=== PATIENT | female | born 1985 | race American Indian/Alaskan Native ===

== ENCOUNTER 2018-09-18 08:50 | Emergency (ER) | payer OTHER ==
[2018-09-18 09:04] VITALS: BP 146/95
[2018-09-18 10:57] LABS: Basophils # (Auto) 0.1 K/mm3 (0.0-0.1); Basophils % (Auto) 0.6 % (0.0-1.8); Eosinophils # (Auto) 0.1 K/mm3 (0.0-0.4); Hematocrit 38.6 % (30.3-42.9); Hemoglobin 12.8 gm/dl (10.1-14.3); Lymphocytes # (Auto) 1.9 K/mm3 (1.2-5.4); Lymphocytes % (Auto) 21.7 % (13.4-35.0); Mean Corpuscular HGB Conc 33 % (30-34); Mean Corpuscular Volume 82 fl (79-97); Monocytes # (Auto) 0.4 K/mm3 (0.0-0.8); Monocytes % (Auto) 4.9 % (0.0-7.3); Platelet Count 277 K/mm3 (140-440); Red Blood Count 4.69 M/mm3 (3.65-5.03); Red Cell Distribution Width 15.3 % (13.2-15.2)
[2018-09-18 10:59] LABS: Bilirubin,Urine NEG (Negative); Blood,Urine NEG (Negative); Color,Urine Yellow (Yellow); Protein,Urine <15 mg/dL mg/dL (Negative); Urobilinogen,Urine < 2.0 mg/dL (<2.0); WBC,Urine < 1.0 /HPF (0.0-6.0)
[2018-09-18 11:19] LABS: Alanine Aminotransferase 21 units/L (7-56); BUN/Creatinine Ratio 15; Blood Urea Nitrogen 6 mg/dL (7-17); Calcium 8.8 mg/dL (8.4-10.2); Hemolysis Index 4
--- NOTE | 2018-09-18 11:25 | Emergency Department Report ---
ED General Adult HPI - General Chief complaint: Medical Clearance Stated complaint: LFT SIDE NUMB/LFT SIDE PAIN Time Seen by Provider: 09/18/18 10:22 Source: patient Mode of arrival: Ambulatory Limitations: No Limitations - History of Present Illness Initial comments: Pt is a 32 yo female who presents to the ED with c/o left sided facial pain, left sided facial tingling, left sided shoulder pain that began 3 days ago. She states at that time her blood pressure was elevated, and the diastolic was >100. She states she is 9 weeks and she saw her TANK FILLER and was placed on labetalol 100 mg BID. She states she also has N/V. She denies any abdominal pain, CP, SOB, urinary sx, ROBERTSON, or vision changes. She states her next appt with her TANK FILLER is on 09/21. The patient states she also has a hx of PCOS with insulin resistance and previously took metformin but was taken off by her TANK FILLER. Severity scale (0 -10): 7 - Related Data Allergies Allergy/AdvReac Type Severity Reaction Status Date / Time Sulfa (Sulfonamide Allergy Hives Verified 09/18/18 08:55 Antibiotics) ED Review of Systems ROS: Stated complaint: LFT SIDE NUMB/LFT SIDE PAIN Other details as noted in HPI Comment: All other systems reviewed and negative ED Past Medical Hx - Past Medical History Previous Medical History?: Yes Hx Hypertension: Yes Additional medical history: Takes Metformin - Surgical History Past Surgical History?: Yes Additional Surgical History: Colon resection - Social History Smoking Status: Never Smoker Substance Use Type: None ED Physical Exam - General Limitations: No Limitations General appearance: alert, in no apparent distress - Head Head exam: Present: atraumatic, normocephalic - Eye Eye exam: Present: normal appearance, PERRL, EOMI - ENT ENT exam: Present: mucous membranes moist, other (FROM of the mandible) - Respiratory Respiratory exam: Present: normal lung sounds bilaterally. Absent: respiratory distress, wheezes, rales, rhonchi, stridor, chest wall tenderness, accessory muscle use, decreased breath sounds, prolonged expiratory - Cardiovascular Cardiovascular Exam: Present: regular rate, normal rhythm, normal heart sounds. Absent: systolic murmur, diastolic murmur, rubs, gallop - Extremities Exam Extremities exam: Present: other (FROM of the bilateral shoulders) - Neurological Exam Neurological exam: Present: alert, oriented X3, CN II-XII intact, normal gait, other (equal news videographer strength, normal finger to nose, normal heel to lopez, 5/5 strength in the BUE/BLE, sensation intact, no facial asymmetry, facial sensation intact throughout, no neuro deficit on exam). Absent: motor sensory deficit - Psychiatric Psychiatric exam: Present: normal affect, normal mood - Skin Skin exam: Present: warm, dry, intact ED Course Vital Signs 09/18/18 09/18/18 09:03 10:22 Temperature 98.6 F Pulse Rate 87 Respiratory 18 16 Rate Blood Pressure 146/95 [Right] O2 Sat by Pulse 99 Oximetry ED Medical Decision Making - Lab Data Result diagrams: 09/18/18 10:44 09/18/18 10:44 Lab Results 09/18/18 09/18/18 09/18/18 Range/Units 10:15 10:40 10:44 WBC 8.8 (4.5-11.0) K/mm3 RBC 4.69 (3.65-5.03) M/mm3 Hgb 12.8 (10.1-14.3) gm/dl Hct 38.6 (30.3-42.9) % MCV 82 (79-97) fl MCH 27 L (28-32) pg MCHC 33 (30-34) % RDW 15.3 H (13.2-15.2) % Plt Count 277 (140-440) K/mm3 Lymph % (Auto) 21.7 (13.4-35.0) % Rowan % (Auto) 4.9 (0.0-7.3) % Eos % (Auto) 1.0 (0.0-4.3) % Baso % (Auto) 0.6 (0.0-1.8) % Lymph # 1.9 (1.2-5.4) K/mm3 Rowan # 0.4 (0.0-0.8) K/mm3 Eos # 0.1 (0.0-0.4) K/mm3 Baso # 0.1 (0.0-0.1) K/mm3 Seg Neutrophils % 71.8 H (40.0-70.0) % Seg Neutrophils # 6.3 (1.8-7.7) K/mm3 Sodium (137-145) mmol/L Potassium (3.6-5.0) mmol/L Chloride (98-107) mmol/L Carbon Dioxide (22-30) mmol/L Anion Gap mmol/L BUN (7-17) mg/dL Creatinine (0.7-1.2) mg/dL Estimated GFR ml/min BUN/Creatinine Ratio % Glucose (65-100) mg/dL POC Glucose 89 (70-105) Calcium (8.4-10.2) mg/dL Magnesium (1.7-2.3) mg/dL Total Bilirubin (0.1-1.2) mg/dL AST (5-40) units/L ALT (7-56) units/L Alkaline Phosphatase (35-129) units/L Total Protein (6.3-8.2) g/dL Albumin (3.9-5) g/dL Albumin/Globulin Ratio % Urine Color Yellow (Yellow) Urine Turbidity Clear (Clear) Urine pH 8.0 H (5.0-7.0) Ur Specific [place] 1.012 (1.003-1.030) Urine Protein <15 mg/dl (Negative) mg/dL Urine Glucose (UA) Neg (Negative) mg/dL Urine Ketones Neg (Negative) mg/dL Urine Blood Neg (Negative) Urine Nitrite Neg (Negative) Urine Bilirubin Neg (Negative) Urine Urobilinogen < 2.0 (<2.0) mg/dL Ur Leukocyte Esterase Neg (Negative) Urine WBC (Auto) < 1.0 (0.0-6.0) /HPF Urine RBC (Auto) 2.0 (0.0-6.0) /HPF U Epithel Cells (Auto) 6.0 (0-13.0) /HPF 09/18/18 09/18/18 Range/Units 10:44 11:35 WBC (4.5-11.0) K/mm3 RBC (3.65-5.03) M/mm3 Hgb (10.1-14.3) gm/dl Hct (30.3-42.9) % MCV (79-97) fl MCH (28-32) pg MCHC (30-34) % RDW (13.2-15.2) % Plt Count (140-440) K/mm3 Lymph % (Auto) (13.4-35.0) % Rowan % (Auto) (0.0-7.3) % Eos % (Auto) (0.0-4.3) % Baso % (Auto) (0.0-1.8) % Lymph # (1.2-5.4) K/mm3 Rowan # (0.0-0.8) K/mm3 Eos # (0.0-0.4) K/mm3 Baso # (0.0-0.1) K/mm3 Seg Neutrophils % (40.0-70.0) % Seg Neutrophils # (1.8-7.7) K/mm3 Sodium 134 L (137-145) mmol/L Potassium 4.0 (3.6-5.0) mmol/L Chloride 99.5 (98-107) mmol/L Carbon Dioxide 23 (22-30) mmol/L Anion Gap 16 mmol/L BUN 6 L (7-17) mg/dL Creatinine 0.4 L (0.7-1.2) mg/dL Estimated GFR > 60 ml/min BUN/Creatinine Ratio 15 % Glucose 100 (65-100) mg/dL POC Glucose (70-105) Calcium 8.8 (8.4-10.2) mg/dL Magnesium 1.70 (1.7-2.3) mg/dL Total Bilirubin 0.20 (0.1-1.2) mg/dL AST 13 (5-40) units/L ALT 21 (7-56) units/L Alkaline Phosphatase 51 (35-129) units/L Total Protein 7.3 (6.3-8.2) g/dL Albumin 4.0 (3.9-5) g/dL Albumin/Globulin Ratio 1.2 % Urine Color (Yellow) Urine Turbidity (Clear) Urine pH (5.0-7.0) Ur Specific [place] (1.003-1.030) Urine Protein (Negative) mg/dL Urine Glucose (UA) (Negative) mg/dL Urine Ketones (Negative) mg/dL Urine Blood (Negative) Urine Nitrite (Negative) Urine Bilirubin (Negative) Urine Urobilinogen (<2.0) mg/dL Ur Leukocyte Esterase (Negative) Urine WBC (Auto) (0.0-6.0) /HPF Urine RBC (Auto) (0.0-6.0) /HPF U Epithel Cells (Auto) (0-13.0) /HPF - Medical Decision Making Pt is a 32 yo female who presents to the ED with c/o left sided facial pain, left sided facial tingling, left sided shoulder pain that began 3 days ago. She states at that time her blood pressure was elevated, and the diastolic was >100. She states she is 9 weeks and she saw her TANK FILLER and was placed on labetalol 100 mg BID. She states she also has N/V. She denies any abdominal pain, CP, SOB, urinary sx, ROBERTSON, or vision changes. She states her next appt with her TANK FILLER is on 09/21. The patient states she also has a hx of PCOS with insulin resistance and previously took metformin but was taken off by her TANK FILLER. Blood pressure is stable at 146/95. labs are WNL. UA is normal. pt has no neuro deficit on examination. offered pt a CT scan of the head and pt declined. Will have pt follow up with neurology in the next 2-3 days. Will have her follow up with her TANK FILLER in the next 2-3 days and discuss her blood pressure. Will have her follow up with PCP in the next 2-3 days. Discussed with pt to return to the emergency room immediately if begin experiencing ROBERTSON, vision changes, numbness, weakness, or any new or worsening symptoms. case discussed with Dr. Torres who agrees with plan Critical care attestation.: If time is entered above; I have spent that time in minutes in the direct care of this critically ill patient, excluding procedure time. ED Disposition Clinical Impression: Left-sided face pain, Facial paresthesia Left shoulder pain Qualifiers: Chronicity: acute Qualified Code(s): M25.512 - Pain in left shoulder HTN (hypertension) Qualifiers: Hypertension type: essential hypertension Qualified Code(s): I10 - Essential (primary) hypertension Disposition: - TO HOME OR SELFCARE Is pt being admited?: No Does the pt Need Aspirin: No Condition: Stable Instructions: Paresthesia (ED), Hypertension (ED) Additional Instructions: Please follow up with your TANK FILLER in the next 2-3 days. Please follow up with a neurologist in the next 2-3 days. Please discuss with your TANK FILLER about your blood pressure. Continue to take your blood pressure medication and your vitamins. Continue to drink plenty of water. please return to the emergency room immediately if you begin to experience any new or worsening symptoms as discussed. Referrals: WILLIAM TELLO NP [Primary Care Provider] - 2-3 Days [facility] [Provider Group] - 2-3 Days JULEE GONZALES MD [Referring] - 2-3 Days Forms: Work/School Release Form(ED) Time of Disposition: 12:10 Print Language: HEBREW
== END 2018-09-18 12:22 | disposition home or self-care (01) ==
LOC: ED 08:50
DX: I10 Essential (primary) hypertension (principal); M25.512 Pain in left shoulder; R20.2 Paresthesia of skin; Z88.2 Allergy status to sulfonamides
CPT/HCPCS: 36415; 80053; 81001; 82962; 83735; 85025; 99283

== ENCOUNTER 2018-11-25 20:47 | Observation (INO) | payer OTHER ==
--- NOTE | 2018-11-25 21:11 | Event Note ---
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 Further treatment and workup at subsequent clinical providers discretion. Patient/guardian urged not to elope from the ED as their condition may be serious if not clinically assessed and managed. called L&D and they would not take patient due to not being 20 weeks orders: UA, labs, US OB
[2018-11-25 21:54] LABS: Basophils % (Auto) 0.2 % (0.0-1.8); Eosinophils % (Auto) 0.2 % (0.0-4.3); Hematocrit 36.1 % (30.3-42.9); Hemoglobin 12.4 gm/dl (10.1-14.3); Lymphocytes # (Auto) 2.4 K/mm3 (1.2-5.4); Mean Corpuscular HGB Conc 34 % (30-34); Mean Corpuscular Volume 81 fl (79-97); Monocytes # (Auto) 1.2 K/mm3 (0.0-0.8); Monocytes % (Auto) 6.9 % (0.0-7.3); Platelet Count 262 K/mm3 (140-440); Red Blood Count 4.45 M/mm3 (3.65-5.03); Red Cell Distribution Width 13.4 % (13.2-15.2)
[2018-11-25 22:04] LABS: BUN/Creatinine Ratio 15; Blood Urea Nitrogen 6 mg/dL (7-17); Calcium 9.1 mg/dL (8.4-10.2); Hemolysis Index 4
[2018-11-25 23:05] LABS: Bacteria,Urine 1+ /HPF (Negative); Bilirubin,Urine NEG (Negative); Blood,Urine NEG (Negative); Color,Urine Yellow (Yellow); Mucus,Urine FEW /HPF; Protein,Urine <15 mg/dL mg/dL (Negative); Urobilinogen,Urine < 2.0 mg/dL (<2.0)
--- NOTE | 2018-11-25 23:33 | Emergency Department Report ---
ED Abdominal Pain HPI - General Chief Complaint: Abdominal Pain Stated Complaint: 19 WKS PREG/ABD PAIN/FLUID Time Seen by Provider: 11/25/18 23:07 Source: patient Mode of arrival: Ambulatory Limitations: No Limitations - History of Present Illness Initial Comments: Patient is a 32-year-old female that presents emergency room with complaints of abdominal pain and contractions and back pain. Patient also states she is 19 weeks is losing fluid per vagina. Patient denies vaginal bleeding. Patient states her first , patient is a . Patient denies fever chills. Patient denies nausea vomiting. Patient states the pain is 10 out of 10. Patient states the pain is worse with movement and better with rest. MD Complaint: abdominal pain -: Sudden Location: suprapubic Radiation: back Migration to: no migration Severity: severe Severity scale (0 -10): 10 Quality: cramping Consistency: intermittent Improves With: rest Worsens With: movement Associated Symptoms: denies: nausea, vomiting, diarrhea, fever, chills, constipation, dysuria, hematemesis, hematochezia, melena, hematuria - Related Data LMP (females 10-50): Allergies Allergy/AdvReac Type Severity Reaction Status Date / Time Sulfa (Sulfonamide Allergy Hives Verified 11/25/18 21:18 Antibiotics) ED Review of Systems ROS: Stated complaint: 19 WKS PREG/ABD PAIN/FLUID Other details as noted in HPI Constitutional: denies: chills, fever Eyes: denies: eye pain, eye discharge, vision change ENT: denies: ear pain, throat pain Respiratory: denies: cough, shortness of breath, wheezing Cardiovascular: denies: chest pain, palpitations Endocrine: no symptoms reported Gastrointestinal: abdominal pain. denies: nausea, diarrhea Genitourinary: denies: urgency, dysuria, discharge Musculoskeletal: back pain. denies: joint swelling, arthralgia Skin: denies: rash, lesions Neurological: denies: headache, weakness, paresthesias Psychiatric: denies: anxiety, depression Hematological/Lymphatic: denies: easy bleeding, easy bruising ED Past Medical Hx - Past Medical History Previous Medical History?: Yes Hx Hypertension: Yes Hx Diabetes: Yes (gestational diabetes) Additional medical history: Takes Metformin - Surgical History Past Surgical History?: Yes Additional Surgical History: Colon resection - Family History Family history: no significant - Social History Smoking Status: Never Smoker Substance Use Type: None ED Physical Exam - General Limitations: No Limitations General appearance: alert, in no apparent distress - Head Head exam: Present: atraumatic, normocephalic - Eye Eye exam: Present: normal appearance - ENT ENT exam: Present: mucous membranes moist - Neck Neck exam: Present: normal inspection - Respiratory Respiratory exam: Present: normal lung sounds bilaterally. Absent: respiratory distress - Cardiovascular Cardiovascular Exam: Present: regular rate, normal rhythm. Absent: systolic murmur, diastolic murmur, rubs, gallop - GI/Abdominal GI/Abdominal exam: Present: soft, distended, tenderness, normal bowel sounds - Rectal Rectal exam: Present: deferred - Extremities Exam Extremities exam: Present: normal inspection - Back Exam Back exam: Present: normal inspection - Neurological Exam Neurological exam: Present: alert, oriented X3 - Psychiatric Psychiatric exam: Present: normal affect, normal mood - Skin Skin exam: Present: warm, dry, intact, normal color. Absent: rash ED Course Vital Signs 11/25/18 11/26/18 21:08 00:14 Temperature 98.5 F Pulse Rate 121 H 108 H Respiratory 18 20 Rate Blood Pressure 148/102 Blood Pressure 140/91 [Left] O2 Sat by Pulse 99 98 Oximetry - Reevaluation(s) Reevaluation #1: Patient still having contractions and abdominal pain. 11/26/18 01:11 Reevaluation #2: Dr. Winslow wants patient to be sent to the labor and delivery floor. Discussed all results with patient. Patient agrees to plan of care. 11/26/18 01:22 - Consultations Consultation #1: Discussed case with Dr. Winslow and Dr. Bonilla wants fluid readings on the ultrasound by radiologist. Then Dr. Winslow states she will admit the patient to mother baby and treat the patient. 11/26/18 00:38 Dr. Winslow updated with information that the patient is still courtney and the patient fluid is good on ultrasound. Dr. Winslow wants patient to be sent to labor and delivery. 11/26/18 01:11 Dr. 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 11/26/18 02:28 Consultation #2: i discussed case Dr. Card. Dr. Card states he is going to see the patient and is aware that the patient's arterial labor and delivery part of the hospital. 11/26/18 02:29 ED Medical Decision Making - Lab Data Result diagrams: 11/25/18 21:31 11/25/18 21:31 - Radiology Data Radiology results: report reviewed US OB >= 14 weeks Fetus INDICATION / CLINICAL INFORMATION: abd pain, possible premature rupture of membranes. COMPARISON: None available. FINDINGS: Viable single intrauterine gestation is demonstrated in breech presentation. heart rate 177 bpm The placenta is grade 0 and posterior. measurements: BPD 4.2 corresponding to weeks 5 days Head circumference 15.8 corresponding to 18 weeks 5 days Abdominal Circumference corresponding to weeks 1 day Femur length corresponding to 9 weeks Estimated body weight 269 g There is a cervical dilatation, the cervix 3 cm. - Medical Decision Making Patient is a 32-year-old Emergency room with complaints of contractions and abdominal pain and loss of fluid per vagina. Patient is 19 weeks . Patient ultrasound done. Patient's labs are unremarkable except for UTI. Patient admitted to the labor and delivery area for further evaluation and treatment. - Differential Diagnosis contractions. Abdominal pain. . Critical Care Time: Yes Critical care attestation.: If time is entered above; I have spent that time in minutes in the direct care of this critically ill patient, excluding procedure time. Critical Care Time: 35 minutes ED Disposition Clinical Impression: Uterine contractions Qualifiers: Weeks of gestation: 19 weeks Qualified Code(s): Z3A.19 - 19 weeks gestation of Abdominal pain Qualifiers: Abdominal location: lower abdomen, unspecified Qualified Code(s): R10.30 - Lower abdominal pain, unspecified Disposition: 09 OP ADMIT IP TO THIS HOSP Is pt being admited?: Yes Does the pt Need Aspirin: No Condition: Critical Time of Disposition: 01:15
[2018-11-26] MEDS ORDERED: NACL 0.9% 1000 ML 1,000 ML IV ONE (00:38)
[2018-11-26] MEDS ORDERED: NITRATEST PAPER MC ONE (02:00)
[2018-11-26] MEDS ORDERED: AMPICILLIN/NS 2 GM/100 ML 2 GM/100 ML BAG IV ONE (04:08)
[2018-11-26] MEDS ORDERED: ZITHROMAX PO ONE (04:15)
[2018-11-26] MEDS ORDERED: FLAGYL PO ONE (04:16)
--- NOTE | 2018-11-26 04:23 | History and Physical Report ---
History of Present Illness Date of examination: 11/26/18 Date of admission: 11/26/18 03:59 Chief complaint: Contractions since yesterday History of present illness: 32 year old presents to L&D with "contractions." Patient states she started having contractions yesterday with pink spotting when she wiped. She denies vaginal bleeding or spotting now. Still feels contractions and lower back pain. Seen in ED and diagnosed with UTI. Patient receives care at [facility] but records are not available. Will request records. LMP 06/2018. EDC 04/21/19. has been uncomplicated. labs are not available; will request records. 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 denies: abnormal PAP smear, chlamydia, gonorrhea Family/Genetic History: diabetes, heart disease, hypertension, cancer Social history: single, lives with family, full code. denies: smoking, alcohol abuse, prescription drug abuse, IV drug use - Obstetrical History Expected Date of Delivery: 04/21/19 Actual Gestation: 19 Week(s) 1 Day(s) : 1 Para: 0 Hx # Term Pregnancies: 0 Number of Pregnancies: 0 Spontaneous Abortions: 0 Induced : 0 Number of Living Children: 0 Medications and Allergies Allergies Allergy/AdvReac Type Severity Reaction Status Date / Time Sulfa (Sulfonamide Allergy Hives Verified 11/25/18 21:18 Antibiotics) Active Meds: Active Medications Azithromycin (Zithromax) 1,000 mg PO ONCE ONE Stop: 11/26/18 04:16 Lactated Ringer's (Lactated Ringers) 1,000 mls @ 125 mls/hr IV DIRECT SIRENA Ampicillin Sodium (Ampicillin/Ns 2 Gm/100 Ml) 2 gm in 100 mls @ 100 mls/hr IV ONCE ONE; Protocol Stop: 11/26/18 05:07 Ampicillin Sodium (Ampicillin/Ns 1 Gm/50 Ml) 1 gm in 50 mls @ 100 mls/hr IV Q4HR SIRENA; Protocol Metronidazole (Flagyl) 2,000 mg PO ONCE ONE; Protocol Stop: 11/26/18 04:17 Review of Systems All systems: negative (contractions and vaginal discharge) - Vital Signs Vital signs: Vital Signs Temp Pulse Resp BP Pulse Ox 98.5 F 121 H 18 148/102 99 11/25/18 21:08 11/25/18 21:08 11/25/18 21:08 11/25/18 21:08 11/25/18 21:08 Temp Pulse Resp BP Pulse Ox 98.5 F 109 H 20 138/65 98 11/25/18 21:08 11/26/18 04:11 11/26/18 00:14 11/26/18 04:11 11/26/18 00:14 - Physical Exam Abdomen: Positive: normal appearance, soft. Negative: distention, tenderness, guarding, rigidity Genitourinary (Female): Positive: normal external genitalia, normal perenium. Negative: perineal/vulvar lesions Vagina: Positive: other (thin white discharge in posterior fornix of vagina, equivocal nitrazine, negative fern test) Cervix: Positive: other (SVE 3/100/high/BBOW) Uterus: Positive: enlarged. Negative: tender Anus/Rectum: Positive: normal perianal skin Extremities: Positive: normal. Negative: tenderness, edema - Obstetrical FHR: auscultation normal Uterine Contraction Monitor Mode: External Cervical Dilatation: 3 Cervical Effacement Percentage: 100 station: high Uterine Contraction Pattern: Irregular Uterine Contraction Intensity: Mild Results Result Diagrams: 11/25/18 21:31 11/25/18 21:31 Abnormal lab results 11/25/18 11/25/18 11/25/18 Range/Units 21:31 21:31 21:31 WBC 17.1 H (4.5-11.0) K/mm3 [place] # 1.2 H (0.0-0.8) K/mm3 Seg Neutrophils % 78.7 H (40.0-70.0) % Seg Neutrophils # 13.5 H (1.8-7.7) K/mm3 Potassium 3.5 L (3.6-5.0) mmol/L BUN 6 L (7-17) mg/dL Creatinine 0.4 L (0.7-1.2) mg/dL Glucose 112 H (65-100) mg/dL HCG, Quant 3370 H (0-4) mIU/mL Urine WBC (Auto) (0.0-6.0) /HPF 11/25/18 Range/Units Unknown WBC (4.5-11.0) K/mm3 [place] # (0.0-0.8) K/mm3 Seg Neutrophils % (40.0-70.0) % Seg Neutrophils # (1.8-7.7) K/mm3 Potassium (3.6-5.0) mmol/L BUN (7-17) mg/dL Creatinine (0.7-1.2) mg/dL Glucose (65-100) mg/dL HCG, Quant (0-4) mIU/mL Urine WBC (Auto) 25.0 H (0.0-6.0) /HPF All other labs normal. Assessment and Plan A: at 19 weeks, 1 day gestation. UTI. Threatened miscarriage. P: Admit. IV hydration. IV antibiotics for UTI. Flagyl po and Zithromax po for possible STI. GC/CT/TV swab sent. Urine culture. Consulted with Dr. Card re: this patient.
[2018-11-26] MEDS ORDERED: SUBLIMAZE IV ONE (04:46)
[2018-11-26] MEDS: LACTATED RINGERS 1,000 ML IV SCH ×2 (05:23→17:37)
[2018-11-26] MEDS ORDERED: SUBLIMAZE ONE (06:55)
[2018-11-26] MEDS: ZOFRAN IV PRN (09:35)
[2018-11-26] MEDS: STADOL IV PRN ×4 (09:35→23:13)
[2018-11-26] MEDS: AMPICILLIN/NS 1 GM/50 ML 1 GM/50 ML BAG IV SCH ×2 (10:00→15:18)
[2018-11-26 10:10] LABS: Amphetamine Screen,Urine PRESUMPTIVE NEGATIVE; Benzodiazepines Screen,Urine PRESUMPTIVE NEGATIVE; Cannabinoid Screen,Urine PRESUMPTIVE NEGATIVE; Cocaine Screen,Urine PRESUMPTIVE NEGATIVE; Methadone Screen,Urine PRESUMPTIVE NEGATIVE; Opiate Screen,Urine PRESUMPTIVE NEGATIVE
--- NOTE | 2018-11-26 15:00 | Event Note ---
Date: 11/26/18 Patient is a at 19 weeks, 1 day gestation (EDC 04/21/19) who was sent to L&D from the ED early this morning for IV hydration and IV antibiotics with diagnoses of UTI and threatened miscarriage. Per Dr. Card's orders, and in collaboration with MD, patient was admitted for 23 hour observation and observed in L&D while she received IV fluids and IV antibiotics (Ampicillin per MD order). Patient had urine culture and vaginal/cervical cultures done upon admission and these results are still pending. Since a vaginal discharge was noted, patient was treated with both Flagyl and Zithromax. In the ED prior to arrival in L&D, patient had an ultrasound done which stated cervix was 3 cm dialated and fetus was in breech presentation. SVE upon admission was 3/100/high/breech with bulging membranes and this was relayed to MD. IV medications were ordered to control patient's pain and nurses were instructed to give the pain medication. At 2:00 PM, Dr. Card recommended that patient be discharged home on oral antibiotics, to maintain rest and pelvic rest at home, and to follow up with her Primary OB ([facility]) on 11/28. Rx Augmentin 500 mg, #14, 1 po every 12 hours called to [facility] on [facility]. Informed patient of Dr. Card's recommendation for discharge home on rest and pelvic rest, on oral antibiotics BID, with close follow up with her primary OB on Tuesday 11/28. Patient states that she does not feel comfortable going home, that she does not have anyone at home to stay with her, and that she is concerned her pain will not be controlled at home. Informed Dr. Card of patient's concerns and desire to stay in the hospital and asked him to also come and see the patient. He states he will come and see the patient. Nurse manager payroll also spoke with patient re: her desire to stay in L&D.
--- NOTE | 2018-11-26 16:22 | Event Note ---
Date: 11/26/18 FHTs heard with doppler device and seen with bedside US per patient request.
[2018-11-26 16:24] LABS: Hematocrit 34.6 % (30.3-42.9); Hemoglobin 11.3 gm/dl (10.1-14.3); Mean Corpuscular HGB Conc 33 % (30-34); Mean Corpuscular Volume 83 fl (79-97); Platelet Count 239 K/mm3 (140-440); Red Blood Count 4.18 M/mm3 (3.65-5.03); Red Cell Distribution Width 13.7 % (13.2-15.2)
[2018-11-26 17:17] LABS: Band Neutrophils # (Manual) 2.2 K/mm3; Basophils % (Manual) 0 % (0.0-1.8); Eosinophils % (Manual) 0 % (0.0-4.3); Total Cells Counted 100
[2018-11-26 17:18] LABS: Ovalocytes Few
[2018-11-26] MEDS ORDERED: STADOL IV PRN (17:34)
--- NOTE | 2018-11-26 18:26 | Event Note ---
Date: 11/26/18 Saw patient. at 19+1wks. Admitted through the ER for observation early this morning. Patient complained of lower abdominal and back pains, urinary frequency of 1 wk duration. She further complained of yellowish vag discharge which she had during one of her office visits. She denied any fevers or chills. Patient was having contractions every 4 minutes which were painful. Her pelvic exam showed a fully effaced cervix at 6cm dilatation with parts encased in membranes protruding well into the upper vagina. IMPRESSION: Inevitable . Plan: Pain control, IV hydration, NPO, IV antibiotics and expectant management. Patient and her family were informed that at current gestational age that her fetus did not have capacity to for survival if expelled within days as is likely. The clinical state was acknowledged as difficult and patient was comforted and given assurances that every supportive measure that she needs will be provided.
[2018-11-26] MEDS ORDERED: ROCEPHIN/NS 1 GM/50 ML 1 GM/50 ML BAG IV SCH (22:00)
[2018-11-26] MEDS ORDERED: PITOCin/NS 20 UNIT/1000ML DRIP 20 UNITS/1,000 ML BAG IV SCH (23:10)
--- NOTE | 2018-11-26 23:30 | Procedure Note ---
OB Delivery Note - Delivery Date of Delivery: 11/26/18 Surgeon: NEHA NGUYEN Estimated blood loss: 300cc - Vaginal Delivery presentation: breech Intrapartum events: other(please specify) (SAB: 19 week, 1 day gestation delivered at 23:02) Delivery induction: none Route of delivery: Delivery placenta: other (Dr. Card called to come for delivery of placenta) Episiotomy: none Delivery laceration: none Anesthesia: none
[2018-11-27] MEDS ORDERED: PITOCin/NS 20 UNIT/1000ML DRIP 20,000 MILLIUNITS/1,000 ML BAG IV ONE (00:36)
[2018-11-27] MEDS: STADOL IV PRN (00:37)
[2018-11-27 01:43] LABS: Hematocrit 32.1 % (30.3-42.9); Hemoglobin 10.6 gm/dl (10.1-14.3); Mean Corpuscular HGB Conc 33 % (30-34); Mean Corpuscular Volume 82 fl (79-97); Platelet Count 210 K/mm3 (140-440); Red Blood Count 3.91 M/mm3 (3.65-5.03); Red Cell Distribution Width 13.4 % (13.2-15.2)
--- NOTE | 2018-11-27 02:04 | Event Note ---
Date: 11/27/18 Attended to patient who had retained placenta after spontaneous miscarriage at 19wks gestation. Placenta was removed by digital manual extraction and appeared whole upon examination at bedside. There was no continuing active vaginal bleeding subsequent to this. IMP: Complete . Plan: Allow patient to rest. An Ultrasound exam of pelvis to check uterine cavity is devoid of any tissues. Patient may go home later in late afternoon if all stable.
[2018-11-27] MEDS: ZOFRAN IV PRN (02:30)
[2018-11-27] MEDS ORDERED: D5LR 1,000 ML IV ONE (04:04)
[2018-11-27] MEDS ORDERED: D5LR 1,000 ML IV SCH (05:00)
[2018-11-27 08:01] VITALS: BP 122/81
--- NOTE | 2018-11-27 09:03 | Event Note ---
Date: 11/27/18 Ordered repeat CBC for noon today per Dr. Card's request.
[2018-11-27 12:58] LABS: Hematocrit 29.2 % (30.3-42.9); Hemoglobin 9.6 gm/dl (10.1-14.3); Mean Corpuscular HGB Conc 33 % (30-34); Mean Corpuscular Volume 82 fl (79-97); Platelet Count 229 K/mm3 (140-440); Red Blood Count 3.57 M/mm3 (3.65-5.03); Red Cell Distribution Width 13.7 % (13.2-15.2)
--- NOTE | 2018-11-27 13:38 | Ultrasound Report ---
Pelvic ultrasound INDICATION: Recent , possible retained products of conception Transabdominal study was performed. Uterus measures 18.5 x 6.8 x 12.1 cm. Endometrial stripe measures 1 cm. In the cervical canal heterog enous material is seen with a thickness of 2.9 cm. This does not show increased vascularity and only mild hyperechogenicity is seen. I therefore suspect this is more likely blood products than products of conception though cannot state that with complete certainty. Right ovary measures 3.1 cm in length and shows no abnormalities. Flow is seen. Left ovary measures 3 .2 cm in length and shows no abnormalities. No free fluid is seen. IMPRESSION: Cervical canal material is seen as discussed above thought more likely blood products faustino n retained products of conception Signer Name: Juan Carlos Hancock MD Signed: 11/27/2018 1:33 PM Workstation Name: [id number]
[2018-11-27 14:12] LABS: Band Neutrophils # (Manual) 0.3 K/mm3; Basophils % (Manual) 0 % (0.0-1.8); Eosinophils % (Manual) 0 % (0.0-4.3); Total Cells Counted 200
[2018-11-27 14:13] LABS: Anisocytosis 1+; Hypochromasia 1+; Ovalocytes Few; Platelet Estimate Consistent w Auto
== END 2018-11-27 14:15 | disposition home or self-care (01) ==
LOC: ED 20:47 → TRG 11-26 02:18 → LD 11-26 03:59
PROVIDERS: ADMIT Obstetrics & Gynecology; ATTEND Obstetrics & Gynecology
DX: O62.9 Abnormality of forces of labor, unspecified (principal); O23.42 Unspecified infection of urinary tract in pregnancy, second trimester; Z3A.19 19 weeks gestation of pregnancy
CPT/HCPCS: 36415; 76805; 76856; 80048; 80307; 81001; 84702; 85007; 85025; 85027; 86850; 86900; 86901; 87086; 87591; 88305; G0378; J0290; J0595; J0696; J2405; J2590; J3010; J7030; J7120; J7121; 96365; 96366; 96367; 96375; 96376